=== PATIENT | female | born 1975 | race Caucasian/White ===

== ENCOUNTER 2016-04-23 14:45 | Emergency (ER) ==
--- NOTE | 2016-04-23 15:06 | PROVIDER DOCUMENTATION ---
HPI-Headache - General Source: patient - History of Present Illness-Headache Headache Location: reports: frontal Quality of Pain: reports: throbbing Severity: reports: moderate Onset/Duration: reports: 2 days ago Timing: reports: still present Headache History: reports: chronic headaches Any recent trauma/injury?: reports: none Headache severity at the maximum: moderate Preceding Symptoms: reports: none Headache Exacerbated by:: reports: nothing Modifying Factors: improves with: analgesics Associated Symptoms: denies: dizziness, confusion, chest pain Similar Symptoms Previously?: No Recently seen or treated by another doctor?: No <Emma Rojas - Last Filed: 04/23/16 15:25> <Peter Carson - Last Filed: 04/23/16 15:44> - General Stated Complaint: MIGRAINE HEADACHE Time Seen by Provider: 04/23/16 14:50 Allergies/Adverse Reactions: Patient Allergies Allergy/AdvReac Type Severity Reaction Status Date / Time acetaminophen Allergy Mild RASH Verified 04/23/16 15:30 [From Darvocet-N 100] propoxyphene napsylate * Allergy Mild RASH Verified 04/23/16 15:30 [From Darvocet-N 100] Influenza Virus Vaccines Allergy SWELLING Verified 04/23/16 15:30 Home Medications: Home Medication List Medication Instructions Recorded Confirmed Last Taken Type No Home Medications 04/23/16 04/23/16 Unknown History - History of Present Illness-Headache Nature of Presenting Problem: pt is a 40 y/o f present to the Er with complaints of a headache. pt is in no apparent distress. pt states she has had migraine headaches all her life. pt states this episode of headache started a couple of days ago. pt denies loss of consciousness, nausea, vomiting or diarrhea. pt denies any difficulties in walking or slurred speech (Emma Rojas) Review of Systems - Adult - REVIEW OF SYSTEMS - ADULT Constitutional: reports: no symptoms reported Eyes: denies: blurred vision, double vision, eye pain Ears, Nose, Mouth & Throat: denies: ear discharge, ear pain, hearing loss Cardiovascular: reports: no symptoms reported Respiratory: reports: no symptoms reported Gastrointestinal: reports: no symptoms reported Genitourinary: reports: no symptoms reported Musculoskeletal: reports: no symptoms reported Integumentary: reports: no symptoms reported Neurological: reports: headache/migraines. denies: loss of balance, numbness, paresthesia, seizure, slurred speech Psychiatric: reports: no symptoms reported Endocrine: reports: no symptoms reported Hematologic/Lymphatic: reports: no symptoms reported Allergic/Immunologic: reports: no symptoms reported All Other Systems: Reviewed and Negative <CrystalLexxEmma - Last Filed: 04/23/16 15:25> Past History - Adult - PAST MEDICAL HISTORY-ADULT Review of Records: reports: Nursing Assessment Review Major Childhood Illnesses: reports: denies history Cardiovascular: reports: HTN Respiratory: reports: denies history Gastrointestinal: reports: denies history Obstetrical/Gynecological: reports: denies history Genitourinary: reports: denies history Musculoskeletal: reports: denies history Neurological: reports: headaches/migraines (managed by Dr. Lovelace) Endocrine/Immune: reports: denies history Other Conditions: reports: denies history - PRIOR SURGERIES/PROCEDURES Surgical/Procedure History: reports: none - IMMUNIZATION STATUS Childhood Immunizations: See Nurse Assessment Flu Vaccine: See Nurse Assessment - FAMILY HISTORY Family History: reviewed, not pertinent - SOCIAL HISTORY Smoking: cigarettes, less than 1 pack/day Provider spent 3-5 mins advising pt. on dangers of tobacco.: Discussed manners to quit use, and f/u contacts for add'l counseling. Substance Use: none/never Alcohol Use Frequency: never <Emma Rojas - Last Filed: 04/23/16 15:25> Physical Exam- Neurological - Physical Exam-Neuro Initial Vital Signs Reviewed: Yes General Appearance: appears well, alert, no apparent distress HENMT: moist mucous membranes, normal ENT inspection Head Injury: no evidence of injury Neck: non-tender, full range of motion Respiratory: chest non-tender, lungs clear, normal breath sounds, no pleuratic chest pain, no respiratory distress, no accessory muscle use Cardiovascular: normal peripheral pulses, regular rate, rhythm Abdominal Exam: normal bowel sounds, non tender, soft Extremity: normal range of motion, non-tender, normal gait, normal inspection, no pedal edema, no calf tenderness, normal capillary refill erp implementation consultant Exam: normal hearing, normal speech, PERRL Coordination/Gait: normal finger to nose, normal gait, negative Romberg's sign Motor/Sensory: no motor deficit, no sensory deficit, no pronator drift Neurologic: erp implementation consultant II-XII nml as tested, grossly normal, no motor/sensory deficits Integumentary: normal color, normal turgor, warm/dry Psych/Mental Status: normal mood/affect, normal thought content, normal thought process, oriented x 3 - Glascow Coma Scale Best Eye Response: (4) open spontaneously Best Verbal Response: (5) oriented Best Motor Response: (6) obeys commands Total Glascow Score: 15 <Emma Rojas - Last Filed: 04/23/16 15:25> Progress <Emma Rojas - Last Filed: 04/23/16 15:25> <Peter Carson - Last Filed: 04/23/16 15:44> - PLAN OF CARE/RESULTS Progress/Plan/Lab Results: Orders Category Date Time Status ED: Urine Bedside ORDERED Care 04/23/16 14:49 Active Butalbital/APAP/Caffeine [Fioricet] Med 04/23/16 15:08 Discontinued 1 each PO NOW ONE Ibuprofen [Motrin] Med 04/23/16 15:08 Discontinued 800 mg PO NOW ONE Orders Category Date Time Status ED: Urine Bedside ORDERED Care 04/23/16 14:49 Active Butalbital/APAP/Caffeine [Fioricet] Med 04/23/16 15:08 Discontinued 1 each PO NOW ONE Ibuprofen [Motrin] Med 04/23/16 15:08 Discontinued 800 mg PO NOW ONE (Emma Rojas) Departure <Emma Rojas - Last Filed: 04/23/16 15:25> - Departure Time of Disposition Order: 15:44 Certified Medical Emergency: Emergent <Peter Carson - Last Filed: 04/23/16 15:44> - Departure DIAGNOSIS: Migraine Qualifiers: Migraine type: unspecified Status migrainosus presence: without status migrainosus Intractability: not intractable Qualified Code(s): G43.909 - Migraine, unspecified, not intractable, without status migrainosus Disposition: HOME 01 Condition: Stable Additional Instructions: ED Follow Up Instructions: You have been treated by a care provider in the Emergency Department. These instructions are being provided to you so you can have an understanding of how to care for yourself upon discharge. Upon discharge from the Emergency Department, you are responsible for making arrangements for follow-up care by a physician of your choice. Take all prescribed medications as directed. Return to the Emergency Department immediately for any new or worsening symptoms. You may call the Physician Referral phone number at [phone] to obtain a list of Physicians who are taking new patients. Referrals: Chandra Lovelace III, MD [STAFF PHYSICIAN] - Forms: Return to School/Parent Work Instructions: Recurrent Migraine Headache, [id number] Attestation - Scribe Verification/Attestation Scribe:: Emma Rojas Acting as Scribe for:: Peter Carson Scribe documention review:: This chart was documented by a scribe and accurately reflects the service the provider performed and the decisions made by the provider. <Emma Rojas - Last Filed: 04/23/16 15:25> - Physician/ STEFANI Attestation Patient care was provided by Advanced Practice Provider:: Yes Advanced Practice Provider:: Peter Carson Advanced Practice Provider documentation review:: The Mid-level provider documentation, treatment plan and medical decision making was reviewed by the physician who agrees with all treatment and medical decision making by the P. <Peter Carson - Last Filed: 04/23/16 15:44> Physician Attestation
[2016-04-23] MEDS ORDERED: MOTRIN PO ONE (15:08)
[2016-04-23] MEDS ORDERED: FIORICET PO ONE (15:08)
[2016-04-23 15:29] VITALS: BP 127/78
== END 2016-04-23 15:36 | disposition home or self-care (01) ==
LOC: ED 14:45
DX: G43.909 Migraine, unspecified, not intractable, without status migrainosus (principal); R51 Headache; I10 Essential (primary) hypertension; F17.210 Nicotine dependence, cigarettes, uncomplicated; Z71.6 Tobacco abuse counseling